=== PATIENT | female | born 1955 | race Caucasian/White ===

== ENCOUNTER 2022-10-03 19:09 | Emergency (ER) | payer OTHER ==
[2022-10-03] MEDS ORDERED: ISOVUE-370 76% 100ML VIAL As Ordered ONE (19:27)
[2022-10-03 19:46] LABS: BASO % 0.5 % (0.0-1.0); EOS # 0.1 10^3/uL (0.0-0.5); EOS % 1.6 % (0.0-3.0); HEMATOCRIT 41.9 % (36.0-47.0); HEMOGLOBIN 13.6 g/dl (12.0-15.5); LYMPH % 25.4 % (24.0-44.0); MEAN CORPUSCULAR HEMOGLOBIN 27.6 pg (27.0-33.0); MEAN CORPUSCULAR HGB CONC 32.5 g/dl (32.0-36.5); MEAN CORPUSCULAR VOLUME 85.2 fl (80.0-96.0); MONO # 0.7 10^3/uL (0.0-0.8); MONO % 8.2 % (2.0-8.0); NEUTROPHILS # 5.1 10^3/uL (1.5-8.5); NEUTROPHILS % 63.9 % (36.0-66.0); PLATELET COUNT, AUTOMATED 268 10^3/uL (150-450); RED BLOOD COUNT 4.92 10^6/uL (4.00-5.40); WHITE BLOOD COUNT 7.9 10^3/uL (4.0-10.0)
[2022-10-03 19:59] LABS: INR 0.93; PROTHROMBIN TIME 12.7 SECONDS (12.5-14.5)
[2022-10-03 20:00] LABS: PARTIAL THROMBOPLASTIN TIME 25.3 SECONDS (24.8-34.2)
[2022-10-03 20:14] LABS: CK-MB VALUE MASS 2.2 NG/ML (<3.6)
[2022-10-03 20:15] LABS: ETHYL ALCOHOL (ETHANOL) < 0.003 % (0.000-0.010)
[2022-10-03] MEDS ORDERED: TENECTEPLASE 50 MG KIT (TNKase) IVP ONE (20:15)
[2022-10-03 20:17] LABS: CPK CREATINE PHOSPHOKINASE 147 U/L (34-145); MB/CK RELATIVE INDEX 1.49 (< OR =4)
[2022-10-03 20:30] VITALS: BP 184/87
[2022-10-03] MEDS ORDERED: niCARdipine IV 40 MG in IV 1 EA IV SCH (20:35)
[2022-10-03 20:42] LABS: RSV AMPLIFICATION NEGATIVE (NEGATIVE)
[2022-10-03 20:45] VITALS: BP 166/84
[2022-10-03 21:00] VITALS: BP 133/63
[2022-10-03 21:16] VITALS: BP 125/52
[2022-10-03 21:30] VITALS: BP 133/58
[2022-10-03] MEDS ORDERED: SODIUM CHLORIDE 0.9% INJ 10 ML SYR IV ONE ×2 (22:00)
== END 2022-10-03 21:44 | disposition short-term general hospital (02) ==
LOC: M ED 19:09
DX: I63.9 Cerebral infarction, unspecified (principal); R29.702 NIHSS score 2; I65.21 Occlusion and stenosis of right carotid artery; I65.02 Occlusion and stenosis of left vertebral artery; E78.5 Hyperlipidemia, unspecified; E03.9 Hypothyroidism, unspecified; Z79.899 Other long term (current) drug therapy
CPT/HCPCS: 70450; 70496; 70498; 71045; 80047; 82077; 82550; 82553; 84484; 85025; 85610; 85730; 87631; 93005; 93041; 94760; 96374; 96375; 99285; J3101; Q9967